=== PATIENT | male | born 1970 | race Caucasian/White ===

== ENCOUNTER 2018-02-27 10:06 | Day surgery (SDC) | payer SELFPAY ==
[~2018-02-27 10:06] MED LIST: Acetaminophen TAB* 325 MG PO PRN; Buffered Lidocaine 0.9% SYRIN* 5 ML/SYR SYRINGE INTRADERM ONE; Trypan Blue 0.06% SOL* 0.5 ML BTL ONE
[2018-02-27] MEDS ORDERED: fentaNYL* 50 MCG/ML 2 ML VIAL (100 MCG VIAL) ONE (10:53)
[2018-02-27] MEDS ORDERED: Midazolam* 1 MG/ML 2 ML VIAL (2 MG) ONE (10:53)
[2018-02-27] MEDS ORDERED: Propofol* 10 MG/ML 20 ML BTL IV PUSH ONE (11:36)
[2018-02-27 12:03] VITALS: BP 135/80
[2018-02-27] MEDS ORDERED: Tropicamide 1% OPTH.SOL* BTL ONE (14:16)
[2018-02-27] MEDS ORDERED: Cyclopentolate 1% OPTH.SOL* 2 ML BTL ONE (14:16)
[2018-02-27] MEDS ORDERED: acetaZOLAMIDE TAB* 250 MG ONE (14:16)
[2018-02-27] MEDS ORDERED: Neomycin/Polymy/Dex OPHTH.OIN* 3.5 GM ONE (14:16)
[2018-02-27] MEDS ORDERED: Povidone Iodine 5% OPTH* 30 ML BTL ONE (14:16)
[2018-02-27] MEDS ORDERED: Lidocaine 1%* 5 ML VIAL ONE (14:16)
[2018-02-27] MEDS ORDERED: Tetracaine 0.5% OPTH.SOL 4 ML* 1 DROP BTL ONE (14:16)
[2018-02-27] MEDS ORDERED: Ketorolac 0.5% OPHTH (NF) 0.5 % 5 ML BTL ONE (14:16)
[2018-02-27] MEDS ORDERED: Phenylephrine 2.5% OPTH.SOL* 2 ML BTL ONE (14:16)
--- NOTE | 2018-02-28 06:45 | OP ---
OPERATIVE REPORT: DATE OF OPERATION: 02/27/18 DATE OF : 70 SURGEON: German Horton MD ANESTHESIA: Monitored anesthesia care. PRE-OP DIAGNOSIS: Cataract, left eye. POST-OP DIAGNOSIS: Cataract, left eye. OPERATIVE PROCEDURE: Extracapsular cataract extraction of the left eye with intraocular lens implant . IMPLANTS: SN60WF 23.0 diopter lens to the left eye. COMPLICATIONS: None. DESCRIPTION OF PROCEDURE: The patient was given phenylephrine 2.5% and cyclopentolate 1% eye drops t o the operative eye in the preoperative area. The patient was taken to the operating room where a ti me-out was taken to identify the correct patient, site, and side of surgery. The patient's left eye was prepped and draped in the usual sterile fashion with 5% Betadine. A second time-out was taken to verify the correct patient, site, and side of surgery and correct lens implant. A lid speculum was p laced to the left eye. A 1-mm paracentesis blade was used to make a clear corneal incision in the in ferotemporal position. Preservative-free 1% lidocaine was injected into the anterior chamber. DisCo Visc was then injected into the anterior chamber. A 2.75 mm keratome blade was used to make a tripla layton incision at the superotemporal position. A cystotome initiated a capsulorrhexis, which was compl eted with Utrata forceps in a continuous and curvilinear manner. Hydrodissection of the lens was perf ormed with BSS on a cannula. The lens could be spun in a capsular bag. The phacoemulsification hand piece was used with a divide and conquer technique to remove the nucleus with 19.73 CDE. The I/A ortiz dpiece then removed the residual cortical lens material. DisCoVisc was injected to inflate the capsu lar bag. The planned SN60WF 23.0 diopter lens was injected into the capsular bag. The residual DisC oVisc was removed from the eye with the I/A handpiece. The corneal incisions were hydrated and no le aks occurred at physiologic pressure around 20 mmHg per palpation. The lid speculum was removed and drapes removed. Maxitrol ointment was placed to the surface of the operative eye. An adhesive patch and shield was then placed on the operative eye. The patient was taken to the postoperative area in stable condition. [id number]/[facility] #: [id number]
== END 2018-02-27 12:14 | disposition home or self-care (01) ==
LOC: OREAST 10:06
PROVIDERS: ATTEND Student in an Organized Health Care Education/Training Program
DX: H25.812 Combined forms of age-related cataract, left eye (principal); I10 Essential (primary) hypertension; E78.5 Hyperlipidemia, unspecified; Z87.891 Personal history of nicotine dependence
CPT/HCPCS: A9270-GY; J2250; J2704; J3010; V2632